=== PATIENT | female | born 1950 | race Caucasian/White ===

== ENCOUNTER 2017-04-17 08:02 | Outpatient (CLI) | payer MEDICARE ==
--- NOTE | 2017-04-17 12:11 | RAD ---
TWO VIEW CHEST SERIES: Comparison: None. Indication: Cough. FINDINGS: There is enlargement of the cardiac silhouette with prominent pulmonary vascular and interstitial pr ominence. There is no lobar consolidation or significant effusion. Vascular calcification is present . IMPRESSION: Evidence of CHF. Correlate clinically. POS: [facility]
== END 2017-04-17 08:03 | disposition home or self-care (01) ==
LOC: MADRAD 08:02
PROVIDERS: ATTEND Family Medicine
DX: I49.9 Cardiac arrhythmia, unspecified (principal); I50.9 Heart failure, unspecified
CPT/HCPCS: 71020; 93005; 93010

== ENCOUNTER 2017-06-17 13:45 | Outpatient (CLI) | payer MEDICARE ==
[2017-06-17 14:26] LABS: ALT (SGPT) 15 U/L (8-55); AST (SGOT) 15 U/L (5-34); Albumin 4.2 g/dL (3.4-4.8); Alkaline Phosphatase 69 U/L (40-150); Anion Gap 13 mmol/L (10-20); BUN (Urea Nitrogen) 19 mg/dL (9.8-20.1); Bilirubin, Total Less than 0.3 mg/dL (0.2-1.2); Calc. Creatinine Clearance 0 mL/min (70-130); Calcium 11.5 mg/dL (7.8-10.44); Carbon Dioxide 28 mmol/L (23-31); Cardiac Risk 4.9 (Less than 4.5); Chloride 101 mmol/L (98-107); Cholesterol 195 mg/dl (< 200 Desired); Estimated GFR-MDRD 46; Globulin 3.3 g/dL (2.4-3.5); Glucose 97 mg/dL (80-115); HDL Cholesterol 40 mg/dL (>60 Neg Risk); LDL Cholesterol, Calculated 108 mg/dL; Potassium 4.1 mmol/L (3.5-5.1); Protein, Total 7.5 g/dL (6.0-8.3); Sodium 138 mmol/L (136-145); Triglycerides 236 mg/dL (Less than 150)
[2017-06-17 15:42] LABS: #Basophils 0.1 thou/uL (0.0-0.2); #Eosinphils 0.2 thou/uL (0.0-0.7); #Monocytes 0.5 thou/uL (0.11-0.59); #Neutrophils 6.1 thou/uL (1.40-6.50); %Basophils 0.9 % (0.0-1.0); %Eosinophils 2.4 % (0.0-10.0); %Lymphocytes 22.4 % (21.0-51.0); %Monocytes 5.8 % (0.0-10.0); %Neutrophils 68.5 % (42.0-75.0); Hemoglobin 14.3 g/dL (12.0-16.0); Mean Corpuscular HGB CONC 31.3 g/dL (32.0-36.0); Mean Corpuscular Hemoglobin 27.3 pg (27.0-31.0); Mean Corpuscular Volume 87.2 fl (81.0-99.0); Mean Platelet Volume 7.2 fL (7.4-10.4); Platelet Count 300 thou/uL (130-400); RBC Distribution Width 13.3 % (11.5-14.5); Red Blood Cell (RBC) Count 5.25 mill/uL (4.20-5.40); White Blood Cell (WBC) Count 8.9 thou/uL (4.8-10.8)
== END 2017-06-17 13:46 | disposition home or self-care (01) ==
LOC: MADLAB 13:45
PROVIDERS: ATTEND Internal Medicine
DX: J44.9 Chronic obstructive pulmonary disease, unspecified (principal); I50.31 Acute diastolic (congestive) heart failure
CPT/HCPCS: 36415; 80053; 80061; 85025

== ENCOUNTER 2017-06-28 09:38 | Emergency (ER) | payer MEDICARE ==
[2017-06-28] MEDS ORDERED: Ondansetron HCl/PF 4 MG/2 ML Vial ONE (11:27)
[2017-06-28] MEDS ORDERED: Ketorolac Tromethamine 30 MG/ML VIAL ONE (11:27)
[2017-06-28] MEDS ORDERED: Metoclopramide HCl 10 MG/2 ML VIAL ONE (11:27)
[2017-06-28 11:28] LABS: #Basophils 0.1 thou/uL (0.0-0.2); #Lymphocytes 0.9 thou/uL (1.20-3.40); #Monocytes 0.5 thou/uL (0.11-0.59); #Neutrophils 9.4 thou/uL (1.40-6.50); %Basophils 0.7 % (0.0-1.0); %Eosinophils 0.4 % (0.0-10.0); %Lymphocytes 8.5 % (21.0-51.0); %Monocytes 4.9 % (0.0-10.0); %Neutrophils 85.6 % (42.0-75.0); Hemoglobin 15.6 g/dL (12.0-16.0); Mean Corpuscular HGB CONC 32.2 g/dL (32.0-36.0); Mean Corpuscular Hemoglobin 28.3 pg (27.0-31.0); Mean Platelet Volume 7.3 fL (7.4-10.4); Platelet Count 357 thou/uL (130-400); RBC Distribution Width 13.7 % (11.5-14.5); Red Blood Cell (RBC) Count 5.49 mill/uL (4.20-5.40)
[2017-06-28 11:48] LABS: ALT (SGPT) 292 U/L (8-55); AST (SGOT) 103 U/L (5-34); Albumin 4.6 g/dL (3.4-4.8); Alkaline Phosphatase 213 U/L (40-150); Anion Gap 19 mmol/L (10-20); BUN (Urea Nitrogen) 15 mg/dL (9.8-20.1); Bilirubin, Total 0.5 mg/dL (0.2-1.2); Calc. Creatinine Clearance 0 mL/min (70-130); Calcium 10.8 mg/dL (7.8-10.44); Carbon Dioxide 22 mmol/L (23-31); Chloride 100 mmol/L (98-107); Estimated GFR-MDRD 47; Globulin 3.2 g/dL (2.4-3.5); Glucose 113 mg/dL (80-115); Lipase 18 U/L (8-78); Potassium 4.3 mmol/L (3.5-5.1); Protein, Total 7.8 g/dL (6.0-8.3); Sodium 137 mmol/L (136-145)
--- NOTE | 2017-06-28 12:17 | RAD ---
PORTABLE CHEST: Date: 06/28/17 PROVIDED CLINICAL HISTORY: Abdominal pain. FINDINGS: Comparison with 04/17/17. Cardiac and mediastinal silhouette is unchanged in appearance. No focal consolidation, pleural fluid , or pneumothorax apparent. IMPRESSION: No evidence for an acute cardiopulmonary process. POS: [facility]
[2017-06-28 12:31] LABS: Bacteria/HPF Rare-Few HPF (None Seen); Bilirubin Negative (Negative); Blood, Urine Trace (Negative); Clarity Clear (Clear); Glucose, Urine (Dipstick) Negative (Negative); Leukocyte Negative (Negative); Nitrite Negative (Negative); Protein, Urine (Dipstick) Negative (Neg-Trace); RBC/HPF 0-3 HPF (0-3); Specific Gravity, Urine 1.015 (1.005-1.030); Squamous Epithelial 0-3 HPF (0-3); Urobilinogen 0.2 mg/dL (0.2-1.0); WBC/HPF 0-3 HPF (0-3)
--- NOTE | 2017-06-28 14:03 | CT ---
CT ABDOMEN AND PELVIS WITH IV AND ORAL CONTRAST: Date: 06/28/17 HISTORY: Abdominal pain. FINDINGS: No comparison. Mild atelectasis is present at the lung bases. There is oral contrast material throughout the colon. Dilatation of the gallbladder and intrahepatic biliary system is apparent. Gallbladder is greater t anthony 11.0 cm in length. No hyperdense stones are apparent. Common duct is 1.1 cm diameter. It is seen to the level of the ampulla, without a hyperdense stone evident. Lobular soft tissue prominence of the adrenal glands may be related to small adenomas or adrenal hyp erplasia. Cysts arise from the cortex of each kidney. There is calcification within the arterial str uctures. Prominent degenerative changes involve the lumbar spine. No evidence of bowel obstruction. Urinary bladder is decompressed. IMPRESSION: 1. Diffuse distention of the biliary system, extending to the central common bile duct. Cause is no t evident. Please consider gastroenterologic evaluation. 2. Large amount of gastroesophageal reflux. 3. Atherosclerosis. POS: [facility]
== END 2017-06-28 15:04 | disposition home or self-care (01) ==
LOC: MADERS 09:38
DX: K83.1 Obstruction of bile duct (principal); I10 Essential (primary) hypertension; J44.9 Chronic obstructive pulmonary disease, unspecified; Z87.891 Personal history of nicotine dependence
CPT/HCPCS: 71010; 74177; 80053; 81001; 82150; 83690; 85025; 87086; 93005; 94760; 96374; 96375; J1885; J2270; J2405; J2765

== ENCOUNTER 2020-04-12 13:12 | Outpatient (CLI) | payer MEDICARE, OTHER ==
--- NOTE | 2020-04-12 13:35 | RAD ---
Radiograph left knee 4 views: 04/12/2020 HISTORY: 69-year-old female with 3 weeks of left knee pain FINDINGS: A total 5 views, including sunrise view. Small joint effusion. Anterior soft tissue edema. No fracture or dislocation. Mild to moderate asymme trical joint space narrowing at patellofemoral compartment. Small enthesophyte or osteophyte at superior pole. Tiny osteophytes lateral compartment. No osteophytes visualized and medial compartment . Medial compartment joint space and maintained or widened. Lateral compartment joint space indeterminate. IMPRESSION: 1. Anterior soft tissue edema plus small joint effusion. 2. Mild osteoarthrosis
== END 2020-04-12 13:13 | disposition home or self-care (01) ==
LOC: MADRAD 13:12
PROVIDERS: ATTEND Family Medicine
DX: S86.812A Strain of other muscle(s) and tendon(s) at lower leg level, left leg, initial encounter (principal); M17.12 Unilateral primary osteoarthritis, left knee; M25.462 Effusion, left knee; M79.89 Other specified soft tissue disorders

== ENCOUNTER 2023-10-10 15:01 | Emergency (ER) | payer MEDICARE, OTHER ==
[2023-10-10] MEDS ORDERED: Orphenadrine Citrate 60 MG/2 ML VIAL ONE (15:51)
[2023-10-10] MEDS ORDERED: Lidocaine 4% Patch ONE (15:51)
== END 2023-10-10 17:20 | disposition home or self-care (01) ==
LOC: MADERS 15:01
DX: M54.32 Sciatica, left side (principal); I10 Essential (primary) hypertension; J44.9 Chronic obstructive pulmonary disease, unspecified; Z87.891 Personal history of nicotine dependence
CPT/HCPCS: 96372; 99283; J2360

== ENCOUNTER 2025-08-30 08:42 | Outpatient (CLI) | payer MEDICARE, OTHER ==
[2025-08-30 09:10] LABS: ALT (SGPT) 15 U/L (Less than 34); AST (SGOT) 21 U/L (11-34); Albumin 3.8 g/dL (3.1-4.5); Alkaline Phosphatase 70 U/L (40-110); Anion Gap 17 mmol/L (10-20); BUN (Urea Nitrogen) 16 mg/dL (9.8-20.1); Bilirubin, Total 0.3 mg/dL (0.3-1.2); Calc. Creatinine Clearance 0 mL/min (70-130); Calcium 9.5 mg/dL (7.8-10.44); Carbon Dioxide 23 mmol/L (23-31); Chloride 105 mmol/L (98-107); Globulin 3.1 g/dL (2.4-3.5); Glucose 106 mg/dL (83-110); Magnesium 1.8 mg/dL (1.6-2.6); Potassium 4.2 mmol/L (3.5-5.1); Sodium 141 mmol/L (136-145)
[2025-08-30 09:45] LABS: #Basophils 0.1 thou/uL (0.0-0.2); #Eosinophils 0.2 thou/uL (0.0-0.7); #Lymphocytes 1.8 thou/uL (1.20-3.40); #Monocytes 0.6 thou/uL (0.11-0.59); #Neutrophils 6.3 thou/uL (1.40-6.50); %Basophils 1.0 % (0.0-1.0); %Eosinophils 2.4 % (0.0-10.0); %Lymphocytes 19.6 % (21.0-51.0); %Monocytes 6.2 % (0.0-10.0); %Neutrophils 70.8 % (42.0-75.0); Hematocrit 46.4 % (36.0-47.0); Hemoglobin 14.4 g/dL (12.0-16.0); Mean Corpuscular Hemoglobin 27.0 pg (27.0-31.0); Mean Corpuscular Volume 87.4 fl (78.0-98.0); Platelet Count 403 10x3/uL (130-400); Red Blood Cell (RBC) Count 5.31 mill/uL (4.20-5.40); White Blood Cell (WBC) Count 8.9 10x3/uL (4.8-10.8)
[2025-08-30 16:40] LABS: Vitamin D, 25 Hydroxy 32.4 ng/ml (> 30.0)
[2025-08-30 17:10] LABS: Free T4 (Free Thyroxine) 0.89 ng/dL (0.70-1.48)
== END 2025-08-30 08:43 | disposition home or self-care (01) ==
LOC: MADLAB 08:42
PROVIDERS: ATTEND Family Medicine
DX: J44.9 Chronic obstructive pulmonary disease, unspecified (principal); I50.9 Heart failure, unspecified; E55.9 Vitamin D deficiency, unspecified; I10 Essential (primary) hypertension; E03.9 Hypothyroidism, unspecified; Z86.39 Personal history of other endocrine, nutritional and metabolic disease
CPT/HCPCS: 36415; 80053; 82306; 83036; 83735; 84439; 84443; 85025